=== PATIENT | female | born 1980 | race Caucasian/White ===

== ENCOUNTER 2016-08-02 06:08 | Inpatient (IN) | payer MEDICAID ==
[2016-08-02] MEDS ORDERED: LIDOCAINE HCL 50 ML VIAL PERI PRN (06:31)
[2016-08-02] MEDS ORDERED: PENICILLIN G POTASSIUM 5 MILLIONUNT in DEXTROSE 5 % IN WATER 100 ML IV ONE ×2 (06:31)
[2016-08-02] MEDS ORDERED: OXYTOCIN/DEXTROSE 5%-WATER 30 UNITS/500 ML BAG IV ONE ×2 (06:31→14:04)
[2016-08-02] MEDS ORDERED: ONDANSETRON HCL/PF 2 MG/ML VIAL IV PRN (06:31)
[2016-08-02] MEDS ORDERED: RINGERS SOLUTION,LACTATED 1,000 ML IV ONE (06:31)
[2016-08-02] MEDS ORDERED: BUPIVACAINE HCL/PF 30 ML VIAL EP ONE (07:11)
[2016-08-02] MEDS ORDERED: NALOXONE HCL 1 MG/1 ML SYRG IV PRN (07:11)
[2016-08-02] MEDS ORDERED: BUPIVACAINE HCL/0.9 % NACL/PF 250 ML EP PRN (07:11)
[2016-08-02] MEDS: DEXTROSE 5%-LACTATED RINGERS 1,000 ML IV PRN ×2 (07:39→11:45)
--- NOTE | 2016-08-02 07:43 | OR ---
Anesthesia Procedure Note - Anesthesia Procedure Note Date of Service: 08/02/16 Narrative: Vital Signs - Last Taken Temp 36.4 C L 08/02/16 07:13 Pulse 63 08/02/16 07:13 Resp 18 08/02/16 07:13 BP 127/73 08/02/16 07:13 Pulse Ox 99 08/02/16 07:13 08/02/16 07:42 ANESTHESIA PROCEDURE NOTE Date of Procedure: 08/02/2016. Time of procedure: 719. Performed by: Cody Woodruff CRNA Barrel Finisher: None. Preprocedure diagnosis: Active labor. Post procedure diagnosis: Same. Procedure: Insertion of labor epidural. Indications: The patient is a 36 -year-old female in active labor requesting labor epidural for pain management. Findings: See below. Details of the procedure: The patient was placed in a sitting position. DuraPrep as well as Betadine swabs 3 was applied to the patient's back. Patient was then draped in a sterile fashion. Lidocaine 1% was infiltrated to the skin and subcutaneous tissues at the level of the L3 4 interspace. The epidural space was identified using a 18-gauge Tuohy needle with loss-of- resistance technique. Epidural catheter was inserted to a depth of 9 centimeters at skin. Negative test dose was elicited using 3 mL of 1.5% preservative-free lidocaine plus epinephrine 1 200,000. The epidural catheter was then taped and secured in place. A loading dose of 8 mL of 0.25% preservative-free bupivacaine was administered to the epidural catheter after negative aspiration for blood and CSF. EBL: Minimal. Fluids: N/A. Specimen: N/A. Post procedure condition: The patient tolerated the procedure well. No complications were noted. Thank you for this consultation. Cody Woodruff CRNA
--- NOTE | 2016-08-02 08:35 | PN ---
Progess Note - Interim Narrative: 08/02/16 08:32 Patient comfortable with epidural Vital signs stable. FHT: 140 baseline, reassuring Contractions q 2-3 min Cervix: 7/75/-1, status post 1 dose of penicillin at 6:45 AM Impression: Intrauterine at 39 weeks in labor Plan: Continue present plan
[2016-08-02] MEDS ORDERED: PENICILLIN G POTASSIUM 2.5 MILLIONUNT in DEXTROSE 5 % IN WATER 100 ML IV SCH ×2 (10:45)
--- NOTE | 2016-08-02 12:44 | PN ---
Progess Note - Interim Narrative: 08/02/16 12:42 Patient comfortable with epidural Vital signs stable. Pitocin at 6 mu/min. FHT: 130 baseline, reassuring Contractions q 2-3 min Cervix: 9/90/-1, AROM-clear Impression: Intrauterine at 39 weeks in labor, GBS positive-status post 2 doses of penicillin Plan: Continue present plan
--- NOTE | 2016-08-02 14:03 | OR ---
Operative Report - Dictated Report Narrative: Spontaneous vaginal delivery of viable male at 1335 on 08/02/2016 with Apgars 9 and 9, weighing 3508 g in LEANA position with left foot cord 1. Cord clamping delayed approximately 1 minute Placenta delivered complete, intact, with three vessel cord Estimated blood loss: less than 50 ml Lacerations: None History for MU Definition: * The number of deliveries resulting in a live the patient experienced prior to current hospitalization * The previous delivery of live twins or any live multiple gestation is considered one live event. *If primagravida or nulliparous is documented select zero for the number of previous live births. Live Events: 4
[2016-08-02] MEDS ORDERED: BENZOCAINE/MENTHOL 81 SPRAY CAN TP PRN (14:04)
[2016-08-02] MEDS ORDERED: BISACODYL 10 MG SUPP.RECT RC PRN (14:04)
[2016-08-02] MEDS ORDERED: oxyCODONE HCL/ACETAMINOPHEN 1 TAB TABLET PO PRN (14:04)
[2016-08-02] MEDS ORDERED: HYDROCORTISONE 30 APPL TUBE TP PRN (14:04)
[2016-08-02] MEDS ORDERED: SENNOSIDES 8.6 MG TABLET PO PRN (14:04)
[2016-08-02] MEDS ORDERED: GLYCERIN/WITCH HAZEL LEAF 40 APPL BOX TP PRN (14:04)
[2016-08-02] MEDS: oxyCODONE HCL/ACETAMINOPHEN 1 TAB TABLET PO PRN ×3 (15:22→21:49)
[2016-08-02] MEDS: IBUPROFEN 800 MG TABLET PO PRN ×2 (15:23→21:49)
[2016-08-02] MEDS ORDERED: RHO(D) IMMUNE GLOBULIN 300 MCG DISP.SYRIN IM ONE ×3 (16:14→22:30)
[2016-08-02] MEDS: DOCUSATE SODIUM 100 MG CAPSULE PO SCH (21:12)
[2016-08-03] MEDS: IBUPROFEN 800 MG TABLET PO PRN ×3 (06:30→19:07)
[2016-08-03] MEDS: DOCUSATE SODIUM 100 MG CAPSULE PO SCH ×3 (07:25→20:05)
[2016-08-03] MEDS: oxyCODONE HCL/ACETAMINOPHEN 1 TAB TABLET PO PRN ×4 (07:26→22:35)
[2016-08-03] MEDS: FERROUS SULFATE 325 MG TABLET PO SCH (08:35)
[2016-08-03] MEDS: PRENATAL VIT#96/FERROUS FUM/FA 1 TAB TABLET PO SCH (08:35)
--- NOTE | 2016-08-03 08:52 | PN ---
Subjective - Date and Time Seen Date: 08/03/16 Time: 08:52 Objective - Vitals Vitals: Last Vital Signs Temp 37 C 08/03/16 07:15 Pulse 81 08/03/16 07:15 Resp 16 08/03/16 07:15 BP 127/74 08/03/16 07:15 Pulse Ox 99 08/03/16 07:15 Patient denies complaints. Lochia wnl Abdomen - soft, nontender Uterus - firm, at umbilicus - 1 No calf tenderness Impression: day #1 - s/p spontaneous vaginal delivery. Plan: Continue routine care
[2016-08-03] MEDS ORDERED: ACETAMINOPHEN 500 MG TABLET PO PRN (15:06)
[2016-08-03] MEDS ORDERED: ACETAMINOPHEN 325 MG TABLET PO PRN (17:36)
[2016-08-03] MEDS: ASCORBIC ACID 500 MG TABLET PO SCH (19:11)
[2016-08-04] MEDS: IBUPROFEN 800 MG TABLET PO PRN ×2 (01:39→09:11)
[2016-08-04 07:50] VITALS: BP 119/82
[2016-08-04] MEDS: DOCUSATE SODIUM 100 MG CAPSULE PO SCH (09:11)
[2016-08-04] MEDS: PRENATAL VIT#96/FERROUS FUM/FA 1 TAB TABLET PO SCH (09:11)
[2016-08-04] MEDS: FERROUS SULFATE 325 MG TABLET PO SCH (09:11)
[2016-08-04] MEDS: ASCORBIC ACID 500 MG TABLET PO SCH (09:11)
--- NOTE | 2016-08-04 09:49 | PN ---
Subjective - Date and Time Seen Date: 08/04/16 Time: 09:48 Objective - Vitals Vitals: Last Vital Signs Temp 36.8 C 08/04/16 07:47 Pulse 81 08/04/16 07:47 Resp 18 08/04/16 07:47 BP 119/82 08/04/16 07:47 Pulse Ox 98 08/04/16 07:47 Patient denies complaints. Lochia wnl Abdomen - soft, nontender Uterus - firm, at umbilicus - 2 No calf tenderness Impression: day #2 - s/p spontaneous vaginal delivery. Plan: Routine discharge instructions
== END 2016-08-04 15:30 | disposition home or self-care (01) | DRG 775 ==
LOC: OBCLINIC 06:08 → OB 06:25 → MS 08-03 15:36
PROVIDERS: ADMIT Obstetrics & Gynecology; ATTEND Obstetrics & Gynecology
PROC: 10E0XZZ Delivery of Products of Conception, External Approach (ICD-10-PCS; principal; 2016-08-02)
PROC: 10907ZC Drainage of Amniotic Fluid, Therapeutic from Products of Conception, Via Natural or Artificial Opening (ICD-10-PCS; 2016-08-02)
PROC: 4A1HXCZ Monitoring of Products of Conception, Cardiac Rate, External Approach (ICD-10-PCS; 2016-08-02)
PROC: 3E0S3CZ (ICD-10-PCS; 2016-08-02)
DX: O99.824 Streptococcus B carrier state complicating childbirth (principal); O69.81X0 Labor and delivery complicated by cord around neck, without compression, not applicable or unspecified; O99.02 Anemia complicating childbirth; D50.8 Other iron deficiency anemias; Z3A.39 39 weeks gestation of pregnancy; Z37.0 Single live birth
CPT/HCPCS: 59025; 85460; J2790